=== PATIENT | female | born 1950 | race African-American/Black ===

== ENCOUNTER 2018-01-17 12:37 | Outpatient (CLI) | payer MEDICARE ==
--- NOTE | 2018-01-17 14:05 | RAD ---
TWO VIEWS CHEST: COMPARISON: 01/07/16. HISTORY: Dyspnea. FINDINGS: Slight elongation of the aorta. Normal cardiac silhouette. The pulmonary vessels and hilum are norm al. Costophrenic angles are clear. No masses or consolidation. No pneumothorax or osseous abnormal ities. IMPRESSION: No acute cardiopulmonary process. POS: [facility]
== END 2018-01-17 12:38 | disposition home or self-care (01) ==
LOC: RAD 12:37
PROVIDERS: ATTEND Internal Medicine
DX: R06.00 Dyspnea, unspecified (principal)
CPT/HCPCS: 71046

== ENCOUNTER 2018-02-22 10:36 | Outpatient (CLI) | payer MEDICARE ==
--- NOTE | 2018-02-22 12:17 | RAD ---
PA AND LATERAL VIEWS CHEST: HISTORY: Dyspnea. COMPARISON: 01/17/2018 FINDINGS: The heart size is normal. The aorta is tortuous. The lungs are well expanded without focal areas of consolidation, pneumothorax, or pleural effusions. No acute osseous abnormalities are seen. IMPRESSION: Stable exam. No acute process. POS: [facility]
== END 2018-02-22 10:37 | disposition home or self-care (01) ==
LOC: RAD 10:36
PROVIDERS: ATTEND Internal Medicine
DX: R06.00 Dyspnea, unspecified (principal)
CPT/HCPCS: 71046

== ENCOUNTER 2018-03-22 08:57 | Outpatient (CLI) | payer MEDICARE ==
[2018-03-22] MEDS ORDERED: ISOVUE-370 76%-LOCM 1 ML ONE (13:57)
== END 2018-03-22 08:58 | disposition home or self-care (01) ==
LOC: BICCT 08:57
PROVIDERS: ATTEND Internal Medicine
DX: R05 Cough (principal)
CPT/HCPCS: 71260

== ENCOUNTER 2018-06-09 15:20 | Outpatient (CLI) | payer MEDICARE ==
--- NOTE | 2018-06-09 16:09 | ULT ---
THYROID SONOGRAM: 06/09/18 HISTORY: Abnormal CT scan. Thyroid nodule. FINDINGS: Right thyroid lobe is 3.4 cm in length with a heterogeneous echotexture. Multiple tiny nodules, predo minantly cystic, are scattered throughout the right thyroid lobe, predominantly at the superior pole. A solid oval well circumscribed hypoechoic nodule near the mid pole is 0.5 cm. Isthmus is 0.4 cm. Left thyroid lobe is 3.6 cm in length with a heterogeneous echotexture. Cysts measure up to 1.4 cm. N o solid masses. IMPRESSION: Small nonspecific solid and cystic thyroid nodules as detailed above. No dominant aggressive lesion i s evident. POS: [facility]
== END 2018-06-09 15:21 | disposition home or self-care (01) ==
LOC: SCSULT 15:20
PROVIDERS: ATTEND Internal Medicine
DX: E04.1 Nontoxic single thyroid nodule (principal); E04.2 Nontoxic multinodular goiter
CPT/HCPCS: 76536

== ENCOUNTER 2020-05-22 09:23 | Outpatient (CLI) | payer MEDICARE ==
--- NOTE | 2020-05-22 10:47 | MMO ---
Bilateral MAMMO Bilat Screen [facility]. CLINICAL HISTORY: Patient is 69 years old and is seen for screening. The patient has no family history of breast cancer. The patient has no personal history of cancer. VIEWS: The views performed were: bilateral craniocaudal with tomosynthesis and bilateral mediolateral oblique with tomosynthesis. FILMS COMPARED: The present examination has been compared to prior imaging studies performed at [facility] on 12/02/2015 and 12/29/2016. This study has been interpreted with the assistance of computer-aided detection. MAMMOGRAM FINDINGS: There are scattered fibroglandular densities. Benign calcifications are noted bilaterally. There are no suspicious masses, suspicious calcifications, or new areas of architectural distortion. IMPRESSION: THERE IS NO MAMMOGRAPHIC EVIDENCE OF MALIGNANCY. A ROUTINE FOLLOW-UP MAMMOGRAM IN 1 YEAR IS RECOMMENDED. THE RESULTS OF THIS EXAM WERE SENT TO THE PATIENT. ACR BI-RADS Category 2 - Benign finding MAMMOGRAPHY NOTE: 1. A negative mammogram report should not delay a biopsy if a dominant of clinically suspicious mass is present. 2. Approximately 10% to 15% of breast cancers are not detected by mammography. 3. Adenosis and dense breasts may obscure an underlying neoplasm. Reported by: CLEMENTINA FERRER MD Electonically Signed: [id number]
== END 2020-05-22 09:24 | disposition home or self-care (01) ==
LOC: BICMAMMO 09:23
PROVIDERS: ATTEND Family Medicine
DX: Z12.31 Encounter for screening mammogram for malignant neoplasm of breast (principal)
CPT/HCPCS: 77063; 77067

== ENCOUNTER 2020-12-01 19:38 | Inpatient (IN) | payer MEDICARE ==
[2020-12-01 20:11] LABS: Hemoglobin 12.3 g/dL (12.0-16.0); Mean Corpuscular HGB CONC 33.2 g/dL (32.0-36.0); Mean Corpuscular Hemoglobin 33.1 pg (27.0-31.0); Mean Corpuscular Volume 99.6 fL (78.0-98.0); Mean Platelet Volume 7.9 fL (7.4-10.4); Platelet Count 172 thou/uL (130-400); RBC Distribution Width 11.7 % (11.5-14.5); Red Blood Cell (RBC) Count 3.71 mill/uL (4.20-5.40); White Blood Cell (WBC) Count 6.1 thou/uL (4.8-10.8)
[2020-12-01 20:27] LABS: Eosinophils 6 % (0-10); Lymphocytes 42 % (21-51); MDiff Complete? YES; Monocytes 10 % (0-10); Neutrophil 31 % (42-75); Platelet Morphology Comment Appears Adequate; RBC Morphology Normal; Reactive Lymphocytes 11 % (0-10)
[2020-12-01 20:29] LABS: Albumin 3.8 g/dL (3.4-4.8); Anion Gap 11 mmol/L (10-20); BUN (Urea Nitrogen) 22 mg/dL (9.8-20.1); Bilirubin, Total 0.5 mg/dL (0.2-1.2); Calc. Creatinine Clearance 0 mL/min (70-130); Calcium 9.5 mg/dL (7.8-10.44); Carbon Dioxide 29 mmol/L (23-31); Chloride 106 mmol/L (98-107); Globulin 2.7 g/dL (2.4-3.5); Glucose 93 mg/dL (83-110); Potassium 3.5 mmol/L (3.5-5.1); Protein, Total 6.5 g/dL (5.8-8.1); Sodium 142 mmol/L (136-145)
[2020-12-01 20:30] LABS: ALT (SGPT) 54 U/L (8-55); AST (SGOT) 60 U/L (5-34); Alkaline Phosphatase 56 U/L (40-110)
[2020-12-01] MEDS ORDERED: Aspirin Chewable 81 MG TAB ONE (20:49)
[2020-12-01 21:08] LABS: Phosphorus 3.7 mg/dL (2.3-4.7)
[2020-12-02 00:13] VITALS: BMI 33.7
[2020-12-02 00:34] LABS: Troponin I 0.018 ng/mL (< 0.028)
[2020-12-02] MEDS ORDERED: Potassium Chloride 20 MEQ TAB PO SCH (01:00)
[2020-12-02] MEDS ORDERED: Atropine Sulfate 1 mg/10 ml Syringe IVP PRN (02:12)
[2020-12-02 05:02] LABS: Anion Gap 11 mmol/L (10-20); BUN (Urea Nitrogen) 18 mg/dL (9.8-20.1); Calc. Creatinine Clearance 96 mL/min (70-130); Calcium 9.7 mg/dL (7.8-10.44); Carbon Dioxide 28 mmol/L (23-31); Chloride 107 mmol/L (98-107); Glucose 92 mg/dL (83-110); Potassium 3.9 mmol/L (3.5-5.1); Sodium 142 mmol/L (136-145)
[2020-12-02 05:09] LABS: Troponin I 0.025 ng/mL (< 0.028)
[2020-12-02 05:57] LABS: Eosinophils 3 % (0-10); Hemoglobin 11.6 g/dL (12.0-16.0); Lymphocytes 53 % (21-51); MDiff Complete? YES; Mean Corpuscular HGB CONC 33.3 g/dL (32.0-36.0); Mean Corpuscular Hemoglobin 33.2 pg (27.0-31.0); Mean Corpuscular Volume 99.8 fL (78.0-98.0); Mean Platelet Volume 8.1 fL (7.4-10.4); Monocytes 6 % (0-10); Neutrophil 38 % (42-75); Platelet Count 170 thou/uL (130-400); RBC Distribution Width 11.8 % (11.5-14.5); Red Blood Cell (RBC) Count 3.49 mill/uL (4.20-5.40); White Blood Cell (WBC) Count 5.1 thou/uL (4.8-10.8)
[2020-12-02] MEDS ORDERED: DOBUTamine 500 mg/250 ml 500 MG in Premix Bag 1 BAG IVPB SCH ×2 (09:15→11:15)
[2020-12-02 10:31] LABS: SARS-CoV-2 PCR by NAA Not Detected (NotDetected)
[2020-12-02] MEDS: Enoxaparin Sodium 40 MG/0.4 ML SYRINGE SC SCH (11:10)
[2020-12-02] MEDS ORDERED: Amlodipine 10 MG TAB PO SCH (23:00)
[2020-12-03 03:54] LABS: #Eosinphils 0.3 thou/uL (0.0-0.7); #Lymphocytes 2.1 thou/uL (1.20-3.40); #Monocytes 0.5 thou/uL (0.11-0.59); #Neutrophils 2.2 thou/uL (1.40-6.50); %Basophils 0.4 % (0.0-1.0); %Eosinophils 5.6 % (0.0-10.0); %Lymphocytes 41.2 % (21.0-51.0); %Monocytes 10.1 % (0.0-10.0); %Neutrophils 42.8 % (42.0-75.0); Hemoglobin 11.8 g/dL (12.0-16.0); Mean Corpuscular HGB CONC 33.7 g/dL (32.0-36.0); Mean Corpuscular Hemoglobin 33.5 pg (27.0-31.0); Mean Corpuscular Volume 99.5 fL (78.0-98.0); Mean Platelet Volume 8.3 fL (7.4-10.4); Platelet Count 166 thou/uL (130-400); RBC Distribution Width 11.8 % (11.5-14.5); Red Blood Cell (RBC) Count 3.52 mill/uL (4.20-5.40); White Blood Cell (WBC) Count 5.1 thou/uL (4.8-10.8)
[2020-12-03 04:19] LABS: Anion Gap 12 mmol/L (10-20); BUN (Urea Nitrogen) 20 mg/dL (9.8-20.1); Calc. Creatinine Clearance 96 mL/min (70-130); Calcium 8.9 mg/dL (7.8-10.44); Carbon Dioxide 24 mmol/L (23-31); Chloride 109 mmol/L (98-107); Glucose 104 mg/dL (83-110); Potassium 3.4 mmol/L (3.5-5.1); Sodium 142 mmol/L (136-145)
[2020-12-03] MEDS: Enoxaparin Sodium 40 MG/0.4 ML SYRINGE SC SCH (08:04)
[2020-12-03] MEDS ORDERED: Non-Formulary Item 1 EACH (Felodipine [Felodipine Er] 10 MG Tab.Er.24h) PO SCH (09:00)
[2020-12-03 14:57] VITALS: BP 161/84; TEMP 98
[2020-12-03] MEDS ORDERED: Amlodipine 10 MG TAB PO SCH (21:00)
== END 2020-12-03 16:25 | disposition home or self-care (01) | DRG 310 ==
LOC: ERS 19:38 → 2NO 22:16
PROVIDERS: ADMIT Student in an Organized Health Care Education/Training Program; ATTEND Internal Medicine
DX: R00.1 Bradycardia, unspecified (principal); Z20.822 Contact with and (suspected) exposure to COVID-19; I10 Essential (primary) hypertension; R07.89 Other chest pain; I49.3 Ventricular premature depolarization; E78.5 Hyperlipidemia, unspecified; G47.33 Obstructive sleep apnea (adult) (pediatric); E78.00 Pure hypercholesterolemia, unspecified; Z88.1 Allergy status to other antibiotic agents; Z88.2 Allergy status to sulfonamides; Z90.49 Acquired absence of other specified parts of digestive tract; Z90.710 Acquired absence of both cervix and uterus; Z79.51 Long term (current) use of inhaled steroids; Z79.899 Other long term (current) drug therapy; Z99.89 Dependence on other enabling machines and devices
CPT/HCPCS: 36415; 71045; 80048; 80053; 83735; 84100; 84484; 85025; 87635; 93005; 93306; 94760; J1250; J1650; U0003; U0005

== ENCOUNTER 2021-09-19 13:49 | Outpatient (CLI) | payer MEDICARE | END 2021-09-19 13:50 | disposition home or self-care (01) | LOC: BICMAMMO 13:49 | PROVIDERS: ATTEND Family Medicine | DX: Z12.31 Encounter for screening mammogram for malignant neoplasm of breast (principal); Z80.3 Family history of malignant neoplasm of breast | CPT/HCPCS: 77063; 77067 ==

== ENCOUNTER 2021-11-28 09:20 | Outpatient (CLI) | payer MEDICARE | END 2021-11-28 09:21 | disposition home or self-care (01) | LOC: BICMAMMO 09:20 | PROVIDERS: ATTEND Family Medicine | DX: Z13.820 Encounter for screening for osteoporosis (principal); Z78.0 Asymptomatic menopausal state | CPT/HCPCS: 77080 ==

== ENCOUNTER 2023-01-08 10:54 | Outpatient (CLI) | payer MEDICARE | END 2023-01-08 10:55 | disposition home or self-care (01) | LOC: BICMAMMO 10:54 | PROVIDERS: ATTEND Family Medicine | DX: Z12.31 Encounter for screening mammogram for malignant neoplasm of breast (principal); N64.89 Other specified disorders of breast; Z80.3 Family history of malignant neoplasm of breast | CPT/HCPCS: 77063; 77067 ==

== ENCOUNTER 2023-10-06 11:43 | Outpatient (CLI) | payer MEDICARE | END 2023-10-06 11:44 | disposition home or self-care (01) | LOC: BICRAD 11:43 | PROVIDERS: ATTEND Family Medicine | DX: R10.84 Generalized abdominal pain (principal); I51.7 Cardiomegaly | CPT/HCPCS: 74022; 80053; 81003; 81015; 85025; 87086 ==

== ENCOUNTER 2023-10-15 09:02 | Outpatient (CLI) | payer MEDICARE ==
[2023-10-15 11:47] LABS: #Eosinphils 0.2 10x3/uL (0.0-0.5); #Monocytes 0.3 10x3/uL (0.0-1.1); #Neutrophils 1.6 10x3/uL (1.5-8.4); %Basophils 0.8 % (0.0-2.0); %Eosinophils 6.1 % (0.0-6.0); %Lymphocytes 40.7 % (18.0-47.0); %Neutrophils 43.1 % (40.0-75.0); Hemoglobin 12.4 g/dL (12.0-15.5); Mean Corpuscular HGB CONC 31.8 g/dL (32.0-36.0); Mean Corpuscular Hemoglobin 31.9 pg (27.0-33.0); Mean Corpuscular Volume 100.3 fl (81.6-98.3); Mean Platelet Volume 9.9 fl (7.4-10.4); Platelet Count 248 10x3/uL (150-450); RBC Distribution Width 12.6 % (11.5-14.5); Red Blood Cell (RBC) Count 3.89 10x6/uL (3.90-5.03); White Blood Cell (WBC) Count 3.8 10x3/uL (3.5-10.5)
[2023-10-15 12:23] LABS: Anion Gap 14 mmol/L (10-20); BUN (Urea Nitrogen) 16 mg/dL (9.8-20.1); Calc. Creatinine Clearance 0 mL/min (70-130); Calcium 9.4 mg/dL (7.8-10.44); Carbon Dioxide 27 mmol/L (23-31); Chloride 104 mmol/L (98-107); Estimated GFR 79; Glucose 85 mg/dL (83-110); Potassium 3.7 mmol/L (3.5-5.1); Sodium 141 mmol/L (136-145)
== END 2023-10-15 09:03 | disposition home or self-care (01) ==
LOC: LABBT 09:02
PROVIDERS: ATTEND Orthopaedic Surgery Hand Surgery
DX: Z01.818 Encounter for other preprocedural examination (principal); M67.431 Ganglion, right wrist
CPT/HCPCS: 80048; 85025; 93005; 93010

== ENCOUNTER 2024-05-09 09:52 | Outpatient (CLI) | payer MEDICARE | END 2024-05-09 09:53 | disposition home or self-care (01) | LOC: BICULT 09:52 | PROVIDERS: ATTEND Internal Medicine | DX: E04.1 Nontoxic single thyroid nodule (principal) | CPT/HCPCS: 76536 ==